=== PATIENT | female | born 1980 | race Caucasian/White ===

== ENCOUNTER 2016-10-20 09:13 | Emergency (ER) | payer SELFPAY ==
[~2016-10-20 09:13] MED LIST: MECL-62 PO
[2016-10-20 09:15] VITALS: BP 171/88; PULSE 68; RESP 20; TEMP 98.3; O2SAT 99
[2016-10-20] MEDS ORDERED: SODIUM CHLOR 0.9% 1000 ML INJ 1,000 ML IV SCH (09:17)
[2016-10-20 09:27] VITALS: O2SAT 97
[2016-10-20] MEDS ORDERED: SODIUM CHLORIDE 0.9% FLUSH 10 ML FLUSH IV FLUSH PRN (09:30)
[2016-10-20] MEDS ORDERED: ONDANSETRON HCL 4 MG/2 ML VIAL IVP ONE (09:30)
[2016-10-20] MEDS ORDERED: HYDROmorphone HCL PF 2 MG/ML VIAL IVS ONE (09:30)
[2016-10-20 09:38] LABS: AUTOMATED NEUTROPHIL # 8.6 TH/MM3 (1.8-7.7); BASOPHIL # 0.1 TH/MM3 (0-0.2); BASOPHIL % 0.6 % (0.0-2.0); EOSINOPHIL # 0.9 TH/MM3 (0-0.4); EOSINOPHIL % 6.4 % (0.0-4.0); HEMATOCRIT 45.3 % (35.0-46.0); HEMO FLAGS DIFF FINAL; LYMPH % 26.4 % (9.0-44.0); LYMPHOCYTE # 3.7 TH/MM3 (1.0-4.8); MEAN CELL VOLUME 96.1 FL (80.0-100.0); MEAN CORPUSCULAR HEMOGLOBIN 31.9 PG (27.0-34.0); MEAN CORPUSCULAR HGB CONC 33.2 % (32.0-36.0); MONO % 4.1 % (0.0-8.0); NEUT % 62.5 % (16.0-70.0); PLATELET COUNT 259 TH/MM3 (150-450); RED BLOOD COUNT 4.71 MIL/MM3 (4.00-5.30); RED CELL DISTRIBUTION WIDTH 12.7 % (11.6-17.2); WHITE BLOOD COUNT 13.9 TH/MM3 (4.0-11.0)
--- NOTE | 2016-10-20 09:40 | PD ---
HPI Chief Complaint: Flank/Kidney Pain Time Seen by Provider: 09:17 Travel History International Travel<30 days: No Contact w/Intl Traveler<30days: No Traveled to known affect area: No History of Present Illness HPI 36-year-old female brought in by ambulance from home for evaluation of right flank and right-sided abdominal pain. Symptoms started about 2 hours prior to arrival. Pain is severe, constant. The patient is unable to qualify the pain. She is in obvious distress secondary to pain upon arrival. She reports that over the last 2 months she has been having intermittent abdominal discomfort. She denies urinary symptoms. No fevers. She states that for the last couple of weeks she has had upper respiratory symptoms and cough productive of greenish /yellowish sputum. No hemoptysis. History of section and bilateral tubal ligation, no other abdominal surgeries. She thinks she may be constipated , and reports taking a laxative prior to onset of pain. No vaginal bleeding or discharge. No IVDU. PFSH Past Medical History Anemia: Yes (Gestational) Autoimmune Disease: No Blood Disorders: No Bipolar Disorder: Yes Anxiety: Yes Depression: Yes Cancer: No Diabetes: No Diminished Hearing: No Hypertension: Yes (-induced) Psychiatric: No Respiratory: Yes (Chronic bronchitis) Immunizations Current: No ?: Not Menopausal: No : 2 Para: 1 Miscarriage: 1 : 4 Ovarian Cysts: Yes Tubal Ligation: Yes Past Surgical History Abdominal Surgery: Yes (C SECTION) Body Medical Devices: TONGUE RING Section: Yes (X's 2) Pacemaker: No Other Surgery: Yes (PLACENTA ABRUPTIO) Family History Family Hypercholesterolemia: Yes (Sister) Social History Alcohol Use: Yes Tobacco Use: Yes (1/2 PPD) Substance Use: No (Denies today) Allergies-Medications (Allergen,Severity, Reaction): Coded Allergies: No Known Allergies (Unverified , 10/20/16) Reported Meds & Prescriptions Reported Meds & Active Scripts Active Flomax (Tamsulosin HCl) 0.4 Mg Cap 0.4 Mg PO HS Percocet (Oxycodone-Acetaminophen) 5-325 mg Tab 1 Tab PO Q6H PRN Review of Systems Except as stated in HPI: all other systems reviewed are Neg Physical Exam Narrative GENERAL: Well-developed, well-nourished, moderate distress secondary to pain. SKIN: Focused skin assessment warm/dry. No rash. HEAD: Atraumatic. Normocephalic. EYES: Pupils equal and round. No scleral icterus. No injection or drainage. ENT: Mucous membranes pink and moist. NECK: Trachea midline. No JVD. CARDIOVASCULAR: Regular rate and rhythm. RESPIRATORY: No accessory muscle use. Clear to auscultation. Breath sounds equal bilaterally. GASTROINTESTINAL: Abdomen soft, non-tender, nondistended. MUSCULOSKELETAL: No obvious deformities. No clubbing. No cyanosis. No edema. No midline vertebral step-off or tenderness. No CVA tenderness. NEUROLOGICAL: Awake and alert. No obvious cranial nerve deficits. Motor grossly within normal limits. Normal speech. PSYCHIATRIC: Appropriate mood and affect; insight and judgment normal. Data Data Last Documented VS Vital Signs Date Time Temp Pulse Resp B/P Pulse Ox O2 Delivery O2 Flow Rate FiO2 10/20/16 11:16 66 18 137/69 99 10/20/16 09:15 98.3 Orders Beta Hcg (Quant/Titer) (10/20/16 09:17) Complete Blood Count With Diff (10/20/16:17) Comprehensive Metabolic Panel (10/20/16 09:17) Lipase (10/20/16 09:17) Prothrombin Time / Inr (Pt) (10/20/16:17) Act Partial Throm Time (Ptt) (10/20/16:17) Urinalysis - C+S If Indicated (10/20/16 09:17) Ct Abd/Pel W Iv Contrast(Rout) (10/20/16 09:17) Iv Access Insert/Monitor (10/20/16:17) Ecg Monitoring (10/20/16:17) Oximetry (10/20/16 09:17) Hydromorphone Pf Inj (Dilaudid Pf Inj) (10/20/16 09:30) Ondansetron Inj (Zofran Inj) (10/20/16 09:30) Sodium Chlor 0.9% 1000 Ml Inj (Ns 1000 M (10/20/16 09:17) Sodium Chloride 0.9% Flush (Ns Flush) (10/20/16 09:30) Drug Screen, Random Urine (10/20/16 09:23) Ketorolac Inj (Toradol Inj) (10/20/16 09:45) Alcohol (Ethanol) (10/20/16 09:20) Hydromorphone Pf Inj (Dilaudid Pf Inj) (10/20/16 10:45) Iohexol 350 Inj (Omnipaque 350 Inj) (10/20/16 10:35) Tamsulosin (Flomax) (10/20/16 11:15) Labs Laboratory Tests Test 10/20/16 10/20/16 09:20 11:00 White Blood Count 13.9 TH/MM3 Red Blood Count 4.71 MIL/MM3 Hemoglobin 15.0 GM/DL Hematocrit 45.3 % Mean Corpuscular Volume 96.1 FL Mean Corpuscular Hemoglobin 31.9 PG Mean Corpuscular Hemoglobin 33.2 % Concent Red Cell Distribution Width 12.7 % Platelet Count 259 TH/MM3 Mean Platelet Volume 9.2 FL Neutrophils (%) (Auto) 62.5 % Lymphocytes (%) (Auto) 26.4 % Monocytes (%) (Auto) 4.1 % Eosinophils (%) (Auto) 6.4 % Basophils (%) (Auto) 0.6 % Neutrophils # (Auto) 8.6 TH/MM3 Lymphocytes # (Auto) 3.7 TH/MM3 Monocytes # (Auto) 0.6 TH/MM3 Eosinophils # (Auto) 0.9 TH/MM3 Basophils # (Auto) 0.1 TH/MM3 CBC Comment DIFF FINAL Differential Comment Prothrombin Time 10.4 SEC Prothromb Time International 0.9 RATIO Ratio Activated Partial 27.9 SEC Thromboplast Time Sodium Level 142 MEQ/L Potassium Level 3.9 MEQ/L Chloride Level 108 MEQ/L Carbon Dioxide Level 26.3 MEQ/L Anion Gap 8 MEQ/L Blood Urea Nitrogen 15 MG/DL Creatinine 0.78 MG/DL Estimat Glomerular Filtration 84 ML/MIN Rate Random Glucose 120 MG/DL Calcium Level 9.1 MG/DL Total Bilirubin 0.4 MG/DL Aspartate Amino Transf 15 U/L (AST/SGOT) Alanine Aminotransferase 23 U/L (ALT/SGPT) Alkaline Phosphatase 94 U/L Total Protein 7.7 GM/DL Albumin 3.5 GM/DL Lipase 114 U/L Human Chorionic Gonadotropin, LESS THAN 1 Quant MIU/ML Ethyl Alcohol Level LESS THAN 3 MG/DL Urine Collection Type VOIDED Urine Color YELLOW Urine Turbidity CLEAR Urine pH 5.0 Urine Specific [place] GREATER THAN 1.035 Urine Protein TRACE mg/dL Urine Glucose (UA) NEG mg/dL Urine Ketones NEG mg/dL Urine Occult Blood TRACE Urine Nitrite NEG Urine Bilirubin NEG Urine Leukocyte Esterase NEG Urine RBC 0-3 /hpf Urine WBC 0-2 /hpf Urine Squamous Epithelial >8 /hpf Cells Urine Calcium Oxalate Crystals RARE /hpf Microscopic Urinalysis Comment CULT NOT INDICATED Urine Opiates Screen POS Urine Barbiturates Screen NEG Urine Amphetamines Screen NEG Urine Benzodiazepines Screen NEG Urine Cocaine Screen NEG Urine Cannabinoids Screen POS MDM Medical Decision Making Medical Screen Exam Complete: Yes Emergency Medical Condition: Yes Differential Diagnosis Nephrolithiasis, ureterolithiasis, pyelonephritis, cholecystitis, biliary colic , ectopic , ovarian cyst, ovarian torsion, colitis, appendicitis Narrative Course Vital signs reviewed. CBC shows WBCs 13.9, hemoglobin 15, hematocrit 45.3, platelets 259. CMP is unremarkable. Lipase is 114. Beta HCG is negative. CT abdomen pelvis: CONCLUSION: 2-3 mm calculus in the distal right ureter causing moderate hydronephrosis. No other significant abnormalities. UA shows trace occult blood, rare calcium oxalate crystals, not suggestive of UTI. Patient was made aware of all findings. After she received 2 doses of IV Dilaudid as well as IV Toradol, her pain was much better controlled. 1:35 AM: Patient is resting comfortably. She is tolerating clear liquids orally. She feels well enough to be discharged home. I will give her the name of the urologist on-call with whom to follow-up with this week. She was informed on when to return to the emergency department pitcher verbalizes understanding and agreement with plan. Diagnosis Primary Impression: Ureterolithiasis Referrals: Jose D Elias MD 1 week Urologist Primary Care Physician 3 days Additional Instructions: Follow-up with a primary care physician this week. Follow-up with urologist Dr. Elias or urologist of your choice this week. Return to the emergency department for worsening symptoms or any other concerns. Scripts Tamsulosin 0.4 Mg Cap0.4 Mg PO HS #14 CAP Ref 0 Prov:Jj Norton MD 10/20/16 Tamsulosin (Flomax)0.4 Mg Cap0.4 Mg PO HS #14 CAP Ref 0 Prov:Jj Norton MD 10/20/16 Oxycodone-Acetaminophen (Percocet)5-325 mg Tab1 Tab PO Q6H PRN (PAIN) #20 TAB Ref 0 Prov:Jj Norton MD 10/20/16 Disposition: 01 DISCHARGE HOME Condition: Stable Jj Norton MD October 20, 2016 09:40
[2016-10-20 09:42] LABS: APTT (PATIENT) 27.9 SEC (24.3-30.1); INTERNATIONAL NORMALIZED RATIO 0.9 RATIO; PROTHROMBIN TIME - PATIENT 10.4 SEC (9.8-11.6)
[2016-10-20] MEDS ORDERED: KETOROLAC TROMETHAMINE 30 MG/ML (IVP) VIAL IV PUSH ONE (09:45)
[2016-10-20 09:51] LABS: BICARBONATE 26.3 MEQ/L (21.0-32.0); BLOOD UREA NITROGEN 15 MG/DL (7-18)
[2016-10-20 09:53] LABS: ALT (GPT) 23 U/L (10-53)
[2016-10-20 09:54] LABS: GLOMERULAR FILTRATION RATE 84 ML/MIN (>89)
[2016-10-20 09:55] LABS: TOTAL BILIRUBIN ADULT 0.4 MG/DL (0.2-1.0)
[2016-10-20 09:57] LABS: ALKALINE PHOSPHATASE 94 U/L (45-117); ANION GAP 8 MEQ/L (5-15); CHLORIDE 108 MEQ/L (98-107); POTASSIUM 3.9 MEQ/L (3.5-5.1); SODIUM (NA) 142 MEQ/L (136-145)
[2016-10-20 10:03] LABS: AST (GOT) 15 U/L (15-37)
[2016-10-20 10:06] LABS: BETA HCG QUANT LESS THAN 1 MIU/ML (0-5)
[2016-10-20 10:32] VITALS: BP 134/78; PULSE 74; RESP 20; O2SAT 96
[2016-10-20] MEDS ORDERED: IOHEXOL 350 MG/ML 10 ML VIAL (for RAD DIAG) IV ONE (10:35)
[2016-10-20] MEDS ORDERED: HYDROmorphone HCL PF 1 MG/ML VIAL IV PUSH ONE (10:45)
--- NOTE | 2016-10-20 11:03 | RADHPO ---
EXAM DATE/TIME: 10/20/2016 10:11 [facility] COMPARISON: No previous studies available for comparison. INDICATIONS : Patient complains of right side abdominal pain,nausea,vomitting. IV CONTRAST: 86 cc Omnipaque 350 (iohexol) IV Injection Site: Rt AC Lot: [id number] Exp Date: Jul 2019 Lot: Exp Date : ORAL CONTRAST: No oral contrast ingested. RADIATION DOSE: 17.24 CTDIvol (mGy) MEDICAL HISTORY : Hypertension. SURGICAL HISTORY : section. ENCOUNTER: Initial ACUITY: 1 day PAIN SCALE: 10/10 LOCATION: Right lower quadrant TECHNIQUE: Volumetric scanning of the abdomen and pelvis was performed. Using automated exposure control and ad justment of the mA and/or kV according to patient size, radiation dose was kept as low as reasonably achievable to obtain optimal diagnostic quality images. FINDINGS: LOWER LUNGS: The visualized lower lungs are clear. LIVER: Homogeneous density without lesion. There is no dilation of the biliary tree. No calcified gallston es. SPLEEN: Normal size without lesion. PANCREAS: Within normal limits. KIDNEYS: The right renal collecting system is moderately distended. There is hydroureter identified to the lev el of the pelvis. Proximal to the ureterovesical junction there is a 2-3 mm calculus which could be w ithin the ureter. The left kidney and collecting system unremarkable. ADRENAL GLANDS: Within normal limits. VASCULAR: There is no aortic aneurysm. BOWEL/MESENTERY: The stomach, small bowel, and colon demonstrate no acute abnormality. There is no free intraperitone al air or fluid. ABDOMINAL WALL: Within normal limits. RETROPERITONEUM: There is no lymphadenopathy. BLADDER: No wall thickening or mass. REPRODUCTIVE: Within normal limits. INGUINAL: There is no lymphadenopathy or hernia. MUSCULOSKELETAL: Within normal limits for patient age. CONCLUSION: 2-3 mm calculus in the distal right ureter causing moderate hydronephrosis. No other significant abnormalities. Otto Lo MD on October 20, 2016 at 10:42 Board Certified Radiologist. This report was verified electronically.
[2016-10-20 11:10] LABS: BLOOD, URINE TRACE (NEG); GLUCOSE,URINE NEG (NEG); KETONE, URINE NEG (NEG); NITRITE,URINE NEG (NEG)
[2016-10-20] MEDS ORDERED: TAMSULOSIN HCL 0.4 MG CAP PO ONE (11:15)
[2016-10-20 11:16] VITALS: BP 137/69; PULSE 66; RESP 18; O2SAT 99
[2016-10-20 11:17] LABS: AMPHETAMINE, URINE NEG (NEG); BARBITURATES, URINE NEG (NEG)
[2016-10-20 11:18] LABS: COCAINE, URINE NEG (NEG)
[2016-10-20 11:24] LABS: METHOD OF COLLECTION VOIDED
[2016-10-20 11:25] LABS: URINE COLOR YELLOW (YELLW/STRAW)
[2016-10-20 11:27] LABS: CALCIUM OXALATE CRYSTALS,URINE RARE /hpf; RBC, URINE 0-3 /hpf (0-3); SQUAMOUS EPITHELIAL CELL URINE >8 /hpf (0-5); WBC, URINE 0-2 /hpf (0-5)
[2016-10-20 11:28] LABS: COMMENT (UR) CULT NOT INDICATED; CULTURE IF INDICATED CULT NOT INDICATED
[2016-10-20] MEDS ORDERED: TAMS5CAP PO (11:37)
[2016-10-20] MEDS ORDERED: PERC5TAB12 PO (11:37)
[2016-10-20] MEDS ORDERED: TAMS0.4C4 PO (11:39)
== END 2016-10-20 11:57 | disposition home or self-care (01) ==
LOC: PHED 09:13
DX: N20.1 Calculus of ureter (principal); N13.2 Hydronephrosis with renal and ureteral calculous obstruction; F17.210 Nicotine dependence, cigarettes, uncomplicated
CPT/HCPCS: 74177; 80053; 80307; 81001; 83690; 84702; 85025; 85610; 85730; 96361; 96374; 96375; 96376; 99284; J1170; J1885; J2405; J7030; Q9967

== ENCOUNTER 2016-10-24 14:47 | Emergency (ER) | payer SELFPAY ==
[~2016-10-24] VITALS: Ht 157.5 cm; Wt 86.5 kg
[~2016-10-24 14:47] MED LIST changes: -MECL-62 PO; +PERC5TAB12 PO; +TAMS0.4C4 PO; +TAMS5CAP PO
[2016-10-24 14:50] VITALS: BP 128/83; PULSE 69; RESP 16; TEMP 97.6; O2SAT 97
[2016-10-24] MEDS ORDERED: SODIUM CHLOR 0.9% 1000 ML INJ 1,000 ML IV SCH (15:06)
--- NOTE | 2016-10-24 15:10 | PD ---
HPI Chief Complaint: Flank/Kidney Pain Time Seen by Provider: 15:06 Travel History International Travel<30 days: No Contact w/Intl Traveler<30days: No Traveled to known affect area: No History of Present Illness HPI Right sided 36-year-old female patient with history of kidney stones seen several days ago, presents to the ER today because she started having a 8 out of 10 left-sided abdominal pain today. She states she's been nauseous and vomiting. She denies any fevers. She states that she did have diarrhea a few days ago it has subsided. She states the pain this time is different than her previous Stone pain which had gone away. Modifying Factors: None Associated Signs & Symptoms: Left-sided abdominal pain with nausea and vomiting Risk Factors: None PFSH Past Medical History Anemia: Yes (Gestational) Autoimmune Disease: No Blood Disorders: No Bipolar Disorder: Yes Anxiety: Yes Depression: Yes Cancer: No Diabetes: No Diminished Hearing: No Hypertension: Yes (-induced) Psychiatric: No Respiratory: Yes (Chronic bronchitis) Immunizations Current: No ?: Not Menopausal: No : 2 Para: 1 Miscarriage: 1 : 4 Ovarian Cysts: Yes Tubal Ligation: Yes Past Surgical History Abdominal Surgery: Yes (C SECTION) Body Medical Devices: TONGUE RING Section: Yes (X's 2) Pacemaker: No Other Surgery: Yes (PLACENTA ABRUPTIO) Family History Family Hypercholesterolemia: Yes (Sister) Social History Alcohol Use: Yes (FEW TIMES PER WEEK) Tobacco Use: Yes (1/2 PPD) Substance Use: No (Denies today) Allergies-Medications (Allergen,Severity, Reaction): Coded Allergies: No Known Allergies (Unverified , 10/24/16) Reported Meds & Prescriptions Reported Meds & Active Scripts Active Flomax (Tamsulosin HCl) 0.4 Mg Cap 0.4 Mg PO HS Percocet (Oxycodone-Acetaminophen) 5-325 mg Tab 1 Tab PO Q6H PRN Review of Systems Except as stated in HPI: all other systems reviewed are Neg Physical Exam Narrative GENERAL: Well-developed young white female patient currently in moderate distress. Awake and oriented 3. SKIN: Focused skin assessment warm/dry. HEAD: Atraumatic. Normocephalic. EYES: Pupils equal and round. No scleral icterus. No injection or drainage. ENT: No nasal bleeding or discharge. Mucous membranes pink and moist. NECK: Trachea midline. No JVD. CARDIOVASCULAR: Regular rate and rhythm. No murmur appreciated. RESPIRATORY: No accessory muscle use. Clear to auscultation. Breath sounds equal bilaterally. GASTROINTESTINAL: Abdomen soft, mild left lower quadrant tenderness without guarding or rebound, nondistended. Hepatic and splenic margins not palpable. BACK: Left CVA tenderness. No rash. No point tenderness on palpation of the spine. MUSCULOSKELETAL: No obvious deformities. No clubbing. No cyanosis. No edema. NEUROLOGICAL: Awake and alert. No obvious cranial nerve deficits. Motor grossly within normal limits. Normal speech. PSYCHIATRIC: Appropriate mood and affect; insight and judgment normal. Data Data Last Documented VS Vital Signs Date Time Temp Pulse Resp B/P Pulse Ox O2 Delivery O2 Flow Rate FiO2 10/24/16 15:58 60 18 102/58 98 Room Air 10/24/16 14:50 97.6 Orders Complete Blood Count With Diff (10/24/16 15:06) Comprehensive Metabolic Panel (10/24/16 15:06) Lipase (10/24/16 15:06) Urinalysis - C+S If Indicated (10/24/16 15:06) Ct Abd/Pel W/O Iv Contrast (10/24/16 15:06) Iv Access Insert/Monitor (10/24/16 15:06) Ecg Monitoring (10/24/16 15:06) Oximetry (10/24/16 15:06) Sodium Chlor 0.9% 1000 Ml Inj (Ns 1000 M (10/24/16 15:06) Sodium Chloride 0.9% Flush (Ns Flush) (10/24/16 15:15) Ketorolac Inj (Toradol Inj) (10/24/16 15:15) Labs Laboratory Tests Test 10/24/16 15:15 White Blood Count 9.7 TH/MM3 Red Blood Count 4.15 MIL/MM3 Hemoglobin 13.1 GM/DL Hematocrit 39.6 % Mean Corpuscular Volume 95.4 FL Mean Corpuscular Hemoglobin 31.6 PG Mean Corpuscular Hemoglobin 33.1 % Concent Red Cell Distribution Width 12.2 % Platelet Count 223 TH/MM3 Mean Platelet Volume 8.8 FL Neutrophils (%) (Auto) 61.1 % Lymphocytes (%) (Auto) 29.4 % Monocytes (%) (Auto) 4.5 % Eosinophils (%) (Auto) 4.5 % Basophils (%) (Auto) 0.5 % Neutrophils # (Auto) 6.1 TH/MM3 Lymphocytes # (Auto) 2.8 TH/MM3 Monocytes # (Auto) 0.4 TH/MM3 Eosinophils # (Auto) 0.4 TH/MM3 Basophils # (Auto) 0.0 TH/MM3 CBC Comment DIFF FINAL Differential Comment Urine Color YELLOW Urine Turbidity CLOUDY Urine pH 8.0 Urine Specific [place] 1.019 Urine Protein NEG mg/dL Urine Glucose (UA) NEG mg/dL Urine Ketones NEG mg/dL Urine Occult Blood NEG Urine Nitrite NEG Urine Bilirubin NEG Urine Leukocyte Esterase NEG Urine WBC 0-2 /hpf Urine Squamous Epithelial > 8 /hpf Cells Urine Amorphous Sediment LARGE Urine Mucus FEW /lpf Microscopic Urinalysis Comment CULT NOT INDICATED Sodium Level 141 MEQ/L Potassium Level 3.6 MEQ/L Chloride Level 106 MEQ/L Carbon Dioxide Level 26.0 MEQ/L Anion Gap 9 MEQ/L Blood Urea Nitrogen 14 MG/DL Creatinine 0.66 MG/DL Estimat Glomerular Filtration 102 ML/MIN Rate Random Glucose 110 MG/DL Calcium Level 8.9 MG/DL Total Bilirubin 0.3 MG/DL Aspartate Amino Transf 20 U/L (AST/SGOT) Alanine Aminotransferase 32 U/L (ALT/SGPT) Alkaline Phosphatase 75 U/L Total Protein 6.8 GM/DL Albumin 3.0 GM/DL Lipase 140 U/L [facility] Medical Decision Making Medical Screen Exam Complete: Yes Emergency Medical Condition: Yes Medical Record Reviewed: Yes Interpretation(s) Laboratory Tests Test 10/24/16 15:15 Eosinophils (%) (Auto) 4.5 % (0.0-4.0) Urine Turbidity CLOUDY (CLEAR) Urine Squamous Epithelial > 8 /hpf (0-5) Cells Urine Mucus FEW /lpf (OCC) Random Glucose 110 MG/DL (74-106) Albumin 3.0 GM/DL (3.4-5.0) Differential Diagnosis Left-sided abdominal pain and flank pains with nausea and vomitingrenal colic versus diverticulitis versus gastroenteritis versus musculoskeletal versus pyelonephritis/UTI Narrative Course Lab work is essentially unremarkable. CAT scan did not show any signs of acute processes. At this point, my plan would be to release the patient would follow- up to primary care physician. We will give her symptomatic relief for discomfort. The plan was discussed with the patient and she states understanding. Diagnosis Primary Impression: Abdominal pain Med/Other Pt SpecificInfo: Prescription(s) given Scripts Ondansetron Odt (Zofran Odt)4 Mg Tab4 Mg SL Q6HR PRN (Nausea/Vomiting) #7 TAB Ref 0 Prov:Jonah Douglas MD 10/24/16 Dicyclomine (Bentyl)10 Mg Cap10 Mg PO TID PRN (Bowel Management) #20 CAP Ref 0 Prov:Jonah Douglas MD 10/24/16 Disposition: 01 DISCHARGE HOME Condition: Stable Jonah Douglas MD October 24, 2016 15:10
[2016-10-24] MEDS ORDERED: SODIUM CHLORIDE 0.9% FLUSH 10 ML FLUSH IV FLUSH PRN (15:15)
[2016-10-24] MEDS ORDERED: KETOROLAC TROMETHAMINE 30 MG/ML (IVP) VIAL IVP ONE (15:15)
[2016-10-24 15:25] VITALS: RESP 16; O2SAT 98
[2016-10-24 15:33] LABS: AUTOMATED NEUTROPHIL # 6.1 TH/MM3 (1.8-7.7); BASOPHIL % 0.5 % (0.0-2.0); EOSINOPHIL # 0.4 TH/MM3 (0-0.4); EOSINOPHIL % 4.5 % (0.0-4.0); HEMATOCRIT 39.6 % (35.0-46.0); HEMO FLAGS DIFF FINAL; LYMPH % 29.4 % (9.0-44.0); LYMPHOCYTE # 2.8 TH/MM3 (1.0-4.8); MEAN CELL VOLUME 95.4 FL (80.0-100.0); MEAN CORPUSCULAR HEMOGLOBIN 31.6 PG (27.0-34.0); MEAN CORPUSCULAR HGB CONC 33.1 % (32.0-36.0); MONO % 4.5 % (0.0-8.0); NEUT % 61.1 % (16.0-70.0); PLATELET COUNT 223 TH/MM3 (150-450); RED BLOOD COUNT 4.15 MIL/MM3 (4.00-5.30); RED CELL DISTRIBUTION WIDTH 12.2 % (11.6-17.2); WHITE BLOOD COUNT 9.7 TH/MM3 (4.0-11.0)
[2016-10-24 15:39] LABS: BLOOD, URINE NEG (NEG); GLUCOSE,URINE NEG (NEG); KETONE, URINE NEG (NEG); NITRITE,URINE NEG (NEG)
[2016-10-24 15:44] LABS: URINE COLOR YELLOW (YELLW/STRAW)
[2016-10-24 15:45] LABS: MUCUS URINE FEW /lpf (OCC); SQUAMOUS EPITHELIAL CELL URINE > 8 /hpf (0-5); WBC, URINE 0-2 /hpf (0-5)
[2016-10-24 15:46] LABS: COMMENT (UR) CULT NOT INDICATED; CULTURE IF INDICATED CULT NOT INDICATED
[2016-10-24 15:47] LABS: CHLORIDE 106 MEQ/L (98-107); POTASSIUM 3.6 MEQ/L (3.5-5.1); SODIUM (NA) 141 MEQ/L (136-145)
[2016-10-24 15:52] LABS: ANION GAP 9 MEQ/L (5-15); BLOOD UREA NITROGEN 14 MG/DL (7-18)
[2016-10-24 15:55] LABS: ALT (GPT) 32 U/L (10-53); AST (GOT) 20 U/L (15-37); GLOMERULAR FILTRATION RATE 102 ML/MIN (>89)
[2016-10-24 15:57] LABS: TOTAL BILIRUBIN ADULT 0.3 MG/DL (0.2-1.0)
[2016-10-24 15:58] VITALS: BP 102/58; PULSE 60; RESP 18; O2SAT 98
[2016-10-24 15:58] LABS: ALKALINE PHOSPHATASE 75 U/L (45-117)
--- NOTE | 2016-10-24 16:42 | RADHPO ---
EXAM DATE/TIME: 10/24/2016 15:22 [facility] COMPARISON: CT ABDOMEN & PELVIS W CONTRAST, October 20, 2016, 10:11. INDICATIONS : Left sided pain since this morning. Prior scan four days ago for right renal stone. ORAL CONTRAST: No oral contrast ingested. RADIATION DOSE: 22.64 CTDIvol (mGy) MEDICAL HISTORY : Hypertension. SURGICAL HISTORY : Tubal ligation. section. ENCOUNTER: Initial ACUITY: 4 - 6 days PAIN SCALE: 7/10 LOCATION: Left flank TECHNIQUE: Volumetric scanning of the abdomen and pelvis was performed. Using automated exposure control and ad justment of the mA and/or kV according to patient size, radiation dose was kept as low as reasonably achievable to obtain optimal diagnostic quality images. FINDINGS: LOWER LUNGS: The visualized lower lungs are clear. LIVER: Homogeneous density without lesion. There is no dilation of the biliary tree. No calcified gallston es. SPLEEN: Normal size without lesion. PANCREAS: Within normal limits. KIDNEYS: The hydronephrosis and hydroureter on the right has resolved. No hydronephrosis or hydroureter on the left. No renal calculi. There is a faint 2 mm calcification projecting near the distal right ureter. I am uncertain if this truly relate to ureteral stone or this relates to a phlebolith adjacent to th e ureter. ADRENAL GLANDS: Within normal limits. VASCULAR: There is no aortic aneurysm. BOWEL/MESENTERY: The stomach, small bowel, and colon demonstrate no acute abnormality. There is no free intraperitone al air. Trace amount of free fluid deep within the pelvis. ABDOMINAL WALL: Within normal limits. RETROPERITONEUM: There is no lymphadenopathy. BLADDER: No wall thickening or mass. REPRODUCTIVE: Within normal limits. INGUINAL: There is no lymphadenopathy or hernia. MUSCULOSKELETAL: Within normal limits for patient age. CONCLUSION: 1. The previously seen hydronephrosis and hydroureter on the right has resolved. 2. Faint 2 mm calcification either within or directly adjacent to the distal right ureter. I'm not ab le to differentiate whether this relates to a small nonobstructing distal right ureteral stone or F. this relates to a phlebolith directly adjacent to the ureter. It is unchanged from the prior study. 3. Trace amount of free fluid within the pelvis. Raz Villegas Jr., MD on October 24, 2016 at 16:35 Board Certified Radiologist. This report was verified electronically.
[2016-10-24] MEDS ORDERED: DICY10 PO (16:51)
[2016-10-24] MEDS ORDERED: ZOFR4TAB3 SL (16:51)
[2016-10-24 16:54] VITALS: BP 109/55; PULSE 60; RESP 18; O2SAT 98
== END 2016-10-24 17:03 | disposition home or self-care (01) ==
LOC: PHED 14:47
DX: R10.32 Left lower quadrant pain (principal); R11.2 Nausea with vomiting, unspecified; D64.9 Anemia, unspecified; F31.9 Bipolar disorder, unspecified; F17.200 Nicotine dependence, unspecified, uncomplicated
CPT/HCPCS: 74176; 80053; 81001; 83690; 85025; 96361; 96374; 99284; J1885; J7030